=== PATIENT | male | born 1965 | race Caucasian/White ===

== ENCOUNTER 2020-02-26 14:27 | Outpatient (CLI) | payer OTHER, SELFPAY ==
--- NOTE | ~2020-02-26 | CT_ITS ---
EXAMINATION: CT soft tissue neck wo con DATE: 02/26/2020 14:53 INDICATION: Right neck lump. TECHNIQUE: Computed tomography (CT) of the neck was performed without intravenous contrast. Automated exposure control and iterative reconstruction technique were employed. The dose-length product was 5 45.56 mGy-cm. COMPARISON: None FINDINGS: There is mild emphysema. The right parotid gland is enlarged with fat stranding, consistent with parotiditis. There is no sialolith. A skin marker overlies this area. There are no pathological ly enlarged lymph nodes. There is mild mucosal thickening in the paranasal sinuses. Multiple maxillar y teeth demonstrate periapical lucencies. There is moderate cervical spondylosis. IMPRESSION: 1. Right-sided parotiditis. 2. Dental disease. Reviewed, dictated and finalized at location A.
== END 2020-02-26 14:28 | disposition home or self-care (01) ==
PROVIDERS: PCP Internal Medicine; Visit Provider Nurse Practitioner
DX: K11.5 Sialolithiasis (principal); R22.1 Localized swelling, mass and lump, neck; K08.9 Disorder of teeth and supporting structures, unspecified
CPT/HCPCS: 70490

== ENCOUNTER → 2020-08-22 14:21 | Outpatient (CLI) | payer OTHER, SELFPAY ==
--- NOTE | ~2020-08-22 | CT_ITS ---
EXAMINATION: CT lung screening DATE: 08/22/2020 14:41 INDICATION: Z87.891 - Personal history of nicotine dependence TECHNIQUE: Computed tomography (CT) of the chest was performed without intravenous contrast. Addition al 3D reconstructions utilizing coronal maximum intensity projection (MIP) were performed. Automated exposure control and iterative reconstruction technique were employed. The dose-length product was 10 6.32 mGy-cm. COMPARISON: None FINDINGS: Calcified right middle lobe nodule along with calcified right hilar lymph nodes consistent with old g ranulomatous disease. No other suspicious pulmonary nodules, pneumonia or other pulmonary infiltrates , pulmonary edema or pleural effusion. Heart size is normal. No pericardial effusion. No pathological ly enlarged thoracic lymphadenopathy. Visualized upper abdomen is unremarkable. Mild S-shaped scolios is of the thoracic spine with upper thoracic dextroscoliosis and mild mid to lower thoracic levocurva ture. Chronic appearing T8 and T9 compression fractures with mild anterior and right-sided vertebral body height loss. Moderate thoracic spondylosis. IMPRESSION: 1. . Lung-RADS category 1: Negative. Continue annual screening with noncontrast low-dose chest CT in 12 months. Reviewed, dictated and finalized at location B.
== END ==
PROVIDERS: PCP Internal Medicine; Visit Provider Nurse Practitioner
DX: Z12.2 Encounter for screening for malignant neoplasm of respiratory organs (principal); Z87.891 Personal history of nicotine dependence
CPT/HCPCS: 71271

== ENCOUNTER 2021-09-10 14:30 | Outpatient (CLI) | payer OTHER, SELFPAY ==
--- NOTE | ~2021-09-10 | CT_ITS ---
EXAMINATION: CT lung screening DATE: 09/10/2021 14:45 INDICATION: Z87.891 - Personal history of nicotine dependence TECHNIQUE: Computed tomography (CT) of the chest was performed without intravenous contrast. Addition al 3D reconstructions utilizing coronal maximum intensity projection (MIP) were performed. Automated exposure control and iterative reconstruction technique were employed. The dose-length product was 11 6.26 mGy-cm. COMPARISON: 08/22/2020 FINDINGS: Calcified pulmonary nodules in the right middle lobe and lingula along with calcified right hilar lym ph nodes consistent with old granulomatous disease. No other suspicious pulmonary nodules, pneumonia or other pulmonary infiltrates, pulmonary edema or pleural effusion. Heart size is normal. No pericar dial effusion. No pathologically enlarged thoracic lymphadenopathy. Visualized upper abdomen is unrem arkable. Mild S-shaped scoliosis of the thoracic spine with upper thoracic dextroscoliosis and mild m id to lower thoracic levocurvature. Chronic appearing T8 and T9 compression fractures with mild anter ior and right-sided vertebral body height loss. Moderate thoracic spondylosis. IMPRESSION: 1. . Lung-RADS category 1: Negative. Continue annual screening with noncontrast low-dose chest CT in 12 months. Reviewed, dictated and finalized at location B.
== END 2021-09-10 14:31 | disposition home or self-care (01) ==
PROVIDERS: PCP Internal Medicine; Visit Provider Nurse Practitioner
DX: Z87.891 Personal history of nicotine dependence (principal)
CPT/HCPCS: 71271

== ENCOUNTER 2025-03-13 08:03 | Outpatient (CLI) | payer OTHER, SELFPAY ==
[2025-03-13 11:03] LABS: Hematocrit 41.6 % (42.0-52.0); Hemoglobin 13.9 g/dL (14.0-18.0); Immature Granulocyte Percent A 0.8 % (0-0.5); Lymphocytes Absolute Auto 1.47 K/mm3 (0.9-3.2); Mean Corpuscular HGB Conc 33.4 g/dl (32-36); Mean Corpuscular Hemoglobin 32.8 pg (26-34); Mean Corpuscular Volume 98.1 fl (80-100); Nucleated Red Blood Cells Absolute Auto 0.000 K/mm3 (0.0-0.012); Nucleated Red Blood Cells Perc 0.0 % (0.0-0.2); Platelet Count Result 342 k/mm3 (150-375); Red Blood Count 4.24 M/mm3 (4.6-6.20); White Blood Count 6.6 K/mm3 (4.5-10.0)
[2025-03-13 11:10] LABS: Alanine Aminotransferase 30 U/L (6-50); Albumin Level 4.4 g/dL (3.5-5.1); Alkaline Phosphatase 91 U/L (38-126); Anion Gap 5 mmol/L (4-12); Aspartate Amino Transferase 47 U/L (17-59); Bilirubin,Total 0.5 mg/dL (0.2-1.3); Blood Urea Nitrogen 13 mg/dL (9-20); Calcium 9.2 mg/dL (8.4-10.2); Carbon Dioxide 27 mmol/L (22-30); Chloride 102 mmol/L (98-107); Cholesterol 172 mg/dL (0-200); Estimated Glomerular Filt Rate > 60; Glucose 108 mg/dL (65-110); HDL Direct 47 mg/dL; Magnesium 2.3 mg/dL (1.6-2.3); Potassium 4.7 mmol/L (3.4-5.0); Sodium 134 mmol/L (137-145); Total Protein 7.5 g/dL (6.3-8.2); Triglycerides 119 mg/dL (<150)
[2025-03-13 11:49] LABS: Prostate Specific Antigen 0.7 ng/mL (< OR = 4.0); Thyroid Stimulating Hormone 2.790 uIU/mL (0.465-4.680)
[2025-03-13 11:58] LABS: Hemoglobin A1C 5.5 % (<5.7)
[2025-03-13 12:24] LABS: Vitamin B12 396.0 pg/mL (239-931)
[2025-03-18 18:07] LABS: 1,25-Dihydroxy, Vitamin D-2 <10 pg/mL (.); 1,25-Dihydroxy, Vitamin D-3 35 pg/mL (.); Total 1,25-Dihydroxy,Vitamin D 40 pg/mL (.)
== END 2025-03-13 08:04 | disposition home or self-care (01) ==
LOC: ANHGOSHLAB 08:04
DX: E78.5 Hyperlipidemia, unspecified (principal); R73.9 Hyperglycemia, unspecified; Z12.5 Encounter for screening for malignant neoplasm of prostate; R53.83 Other fatigue; I10 Essential (primary) hypertension; Z13.29 Encounter for screening for other suspected endocrine disorder; Z13.0 Encounter for screening for diseases of the blood and blood-forming organs and certain disorders involving the immune mechanism; Z13.228 Encounter for screening for other metabolic disorders; E55.9 Vitamin D deficiency, unspecified; F10.10 Alcohol abuse, uncomplicated
CPT/HCPCS: 36415; 80053; 80061; 82172; 82607; 82652; 82746; 83036; 83735; 84153; 84443; 85025; G0103

== ENCOUNTER 2025-04-26 10:52 | Outpatient (CLI) | payer OTHER, SELFPAY ==
--- NOTE | ~2025-04-26 | CT_ITS ---
EXAMINATION:CT lung screening DATE: 04/26/2025 11:08 INDICATION: Screening TECHNIQUE: Computed tomography (CT) of the chest was performed without intravenous contrast. The dose-length product (DLP) was 111.75 mGy-cm. COMPARISON: 09/10/2021 FINDINGS: No new nodules or masses. Lungs are clear. Heart and great vessels stable, normal in size. Degenerative changes throughout the bony thorax. No acute process seen in the visualized portion of the upper abdomen or extrathoracic soft tissues. IMPRESSION: No suspicious lung nodules or masses. Recommend follow-up low-dose lung cancer screening chest CT in 12 months. Lung RADS 1. Reviewed, dictated and finalized at location A. EL DEPARTMENT MANAGER
--- OUTSIDE RECORDS SUMMARY | 2025-04-26 10:56 | XMS_ITS | Patient Health Record ---
Author Organization [facility] Cons Address [address] [place] [address] Care Team Providers Care Dye And Chemical Coordinator Name Role Phone Jennifer INSTRUCTIONAL DESIGN TECHNOLOGIST, Nadine Primary Care Provider Unavailnaida SCHAFFER MD, DAVID Unavailable Reason For Referral No Information Plan Of Treatment No Information Insurance Providers Payer Name Payer Address Payer Phone Subscriber Number Group Number Insured Name Patient Relationship to Insured Coverage Start Date Coverage End Date [facility] e [place] [address] [address] [place] [phone] [id number] Solo Kelsey Self - patient is the insured
== END 2025-04-26 10:53 | disposition home or self-care (01) ==
DX: Z12.2 Encounter for screening for malignant neoplasm of respiratory organs (principal); Z87.891 Personal history of nicotine dependence
CPT/HCPCS: 71271

== ENCOUNTER 2025-05-13 07:30 | Outpatient (CLI) | payer OTHER, SELFPAY ==
--- NOTE | 2025-05-13 07:54 | EST_ITS ---
Patient Info Name: Vipul Kelsey Age: 60 years : 1965 Gender: Male Ht: 68 in Wt: 180 lbs BSA: 2.00 m2 HR: 67 bpm BP: 159 / 83 mmHg Exam Date: 05/13/2025 7:54 AM Patient Status: O Admit Date: 05/13/2025 Exam Type: CA stress test treadmill A treadmill exercise stress test was performed. Staff Referring Physician: Angy Winter Attending Provider: Angy Winter Exercise Technologist: Angy Rashid Exercise Physician: Kain Membreno DO Summary 1. 1. Negative Vahe exercise stress test for ischemic ST changes by ECG criteria. 2. 2. Reduced functional capacity, achieving 7 METs of workload. 3. 3. Baseline hypertension with hypertensive response to exercise. 4. 4. Appropriate HR response to exercise. 5. 5. Appropriate HR recovery at 1 minute post exercise. 6. 6. No imaging with stress testing. 7. 7. Patient informed of the above results. Protocol: Vahe Stress ECG Details Stage: REST Duration (min): 1 min : 49 sec Speed (mph): 0.0 Grade (%): 0 HR (bpm): 71 SBP (mmHg): 159 DBP (mmHg): 83 METS: --- Stage: REST Duration (min): 4 min : 9 sec Speed (mph): 0.0 Grade (%): 0 HR (bpm): 72 SBP (mmHg): 159 DBP (mmHg): 83 METS: --- Stage: STAGE 1 Duration (min): 1 min : 0 sec Speed (mph): 1.7 Grade (%): 10 HR (bpm): 103 SBP (mmHg): 159 DBP (mmHg): 83 METS: --- Stage: STAGE 1 Duration (min): 2 min : 0 sec Speed (mph): 1.7 Grade (%): 10 HR (bpm): 113 SBP (mmHg): 159 DBP (mmHg): 83 METS: --- Stage: STAGE 1 Duration (min): 3 min : 0 sec Speed (mph): 1.7 Grade (%): 10 HR (bpm): 123 SBP (mmHg): 208 DBP (mmHg): 65 METS: --- Stage: STAGE 2 Duration (min): 1 min : 0 sec Speed (mph): 2.5 Grade (%): 12 HR (bpm): 136 SBP (mmHg): 208 DBP (mmHg): 65 METS: --- Stage: STAGE 2 Duration (min): 2 min : 0 sec Speed (mph): 2.5 Grade (%): 12 HR (bpm): 142 SBP (mmHg): 213 DBP (mmHg): 66 METS: --- Stage: STAGE 2 Duration (min): 2 min : 0 sec Speed (mph): 2.5 Grade (%): 12 HR (bpm): 143 SBP (mmHg): 213 DBP (mmHg): 66 METS: --- Stage: RECOVERY Duration (min): 0 min : 59 sec Speed (mph): 0.0 Grade (%): 0 HR (bpm): 121 SBP (mmHg): 213 DBP (mmHg): 66 METS: --- Stage: RECOVERY Duration (min): 1 min : 59 sec Speed (mph): 0.0 Grade (%): 0 HR (bpm): 92 SBP (mmHg): 213 DBP (mmHg): 66 METS: --- Stage: RECOVERY Duration (min): 2 min : 59 sec Speed (mph): 0.0 Grade (%): 0 HR (bpm): 84 SBP (mmHg): 208 DBP (mmHg): 81 METS: --- Stage: RECOVERY Duration (min): 3 min : 59 sec Speed (mph): 0.0 Grade (%): 0 HR (bpm): 84 SBP (mmHg): 208 DBP (mmHg): 81 METS: --- Stage: RECOVERY Duration (min): 4 min : 59 sec Speed (mph): 0.0 Grade (%): 0 HR (bpm): 83 SBP (mmHg): 202 DBP (mmHg): 83 METS: --- Stage: RECOVERY Duration (min): 5 min : 59 sec Speed (mph): 0.0 Grade (%): 0 HR (bpm): 82 SBP (mmHg): 189 DBP (mmHg): 84 METS: --- Stage: RECOVERY Duration (min): 6 min : 14 sec Speed (mph): 0.0 Grade (%): 0 HR (bpm): 81 SBP (mmHg): 189 DBP (mmHg): 84 METS: --- Rest HR: 72 bpm Peak HR: 142 bpm Rest Sys BP: 159 mmHg Peak Sys BP: 213 mmHg Max Pred HR: 160 bpm % Max Pred HR: 89 % Target HR: 136 bpm Max RPP: 30,246 bpm*mmHg [place] Score: 0 BP Response: Patient exhibited a hypertensive response with stress Termination Reason: Reached target heart rate or workload Cardiac Symptoms: Shortness of breath Max ST Seg Deviation: 1.00 mm Total Time: 5 min : 0 sec Rest Schmidt BP: 83 mmHg Peak Schmidt BP: 66 mmHg Angina Score: None Total METS: 7.1 Resting ECG Sinus rhythm, IRBBB. Stress ECG No ST changes. Arrhythmias None. Report Signatures
--- NOTE | 2025-05-13 07:54 | ECHO_ITS ---
Patient Info Name: Vipul Kelsey Age: 60 years : 1965 Gender: Male Ht: 69 in Wt: 185 lbs BSA: 2.04 m2 HR: 71 bpm BP: 174 / 102 mmHg Technical Quality: Good Exam Date: 05/13/2025 8:10 AM Patient Status: O Admit Date: 05/13/2025 Exam Type: CA echo doppler color flow Complete two-dimensional, color flow and Doppler transthoracic echocardiogram is performed. Pyrometer Operator: Soo Oneal Attending Provider: Angy Winter Summary 1. Complete two-dimensional, color flow and Doppler transthoracic echocardiogram is performed. 2. Left ventricular chamber dimension is normal. 3. Left ventricular systolic function is normal, estimated at 60-65. 4. The left ventricular diastolic function is grade I diastolic dysfunction. 5. E/e' 10 is mildly elevated. 6. No pulmonary hypertension, estimated pulmonary arterial systolic pressure is 13 mmHg. Left Ventricle E/e' 10 is mildly elevated. Left ventricular chamber dimension is normal. Left ventricular systolic function is normal, estimated at 60-65. The left ventricular diastolic function is grade I diastolic dysfunction. Right Ventricle Right ventricular chamber dimension is normal. Right ventricular systolic function is normal. Left Atria Left atrial chamber dimension is normal. Right Atria Right atrial chamber dimension is normal. Aortic Valve The aortic valve is trileaflet. There is no aortic valve stenosis. There is no aortic valve regurgitation. Pulmonic Valve There is no pulmonic regurgitation. Mitral Valve There is no mitral valve stenosis. There is no mitral valve regurgitation. Tricuspid Valve There is no tricuspid valve regurgitation. No pulmonary hypertension, estimated pulmonary arterial systolic pressure is 13 mmHg. Pericardium/Pleural There is no pericardial effusion. Inferior Vena Cava Normal inferior vena cava with >50% collapse upon inspiration consistent with normal right atrial pressure, 5 mmHg. Aorta The aortic root size at the sinus of Valsalva is normal. Left Ventricular Outflow Tract Name Value Normal LVOT 2D LVOT Diameter 2.0 cm LVOT Doppler LVOT Peak Velocity 105 cm/s LVOT Peak Gradient 4 mmHg LVOT Mean Gradient 2 mmHg LVOT VTI 20 cm LVOT VTI/AV VTI Ratio 0.8 LVOT Stroke Volume 65 ml LVOT CO 5.2 l/min LVOT CI 2.6 l/min/m2 Pulmonic Valve Name Value Normal PV Doppler PV Peak Velocity 97 cm/s PV Peak Gradient 4 mmHg Mitral Valve Name Value Normal MV Doppler MV Peak Gradient 3 mmHg MV Mean Gradient 1 mmHg MV Area (Cont Eq VTI) 3.3 cm2 MV Diastolic Function MV E Peak Velocity 83 cm/s MV A Peak Velocity 84 cm/s MV E/A 1.0 MV Decel Time (PW) 211 ms MV Annular TDI MV E/e' (Septal) 12.1 MV E/e' (Lateral) 8.9 MV E/e' (Average) 10.5 Tricuspid Valve Name Value Normal TV Regurgitation Doppler TR Peak Velocity 145 cm/s TR Peak Gradient 6 mmHg Estimated PAP/RSVP RA Pressure 5 mmHg <=5 PA Systolic Pressure 13 mmHg <36 RV Systolic Pressure 13 mmHg <36 Aortic Valve Name Value Normal AV Doppler AV Peak Velocity 117 cm/s AV Peak Gradient 6 mmHg AV Mean Gradient 3 mmHg AV VTI 25 cm AV Area (Cont Eq VTI) 2.6 cm2 >=3.0 AV Area (Cont Eq Yong) 2.9 cm2 AV DI (Yong) 0.89 AV Regurgitation 2D LVOT Area 3.2 cm2 Ventricles Name Value Normal LV Dimensions 2D/MM IVS Diastolic Thickness (2D) 0.7 cm 0.6-1.0 LVID Diastole (2D) 5.0 cm 4.2-5.8 LVIW Diastolic Thickness (2D) 1.0 cm 0.6-1.0 LVID Systole (2D) 3.0 cm 2.5-4.0 LVOT Diameter 2.0 cm LV Mass (2D Cubed) 143.42 g 88.00-224.00 LV Mass Index (2D Cubed) 70 g/m2 49-115 Relative Wall Thickness (2D) 0.40 <=0.42 LV Fractional Shortening/Ejection Fraction 2D/MM LV Fractional Shortening (2D) 40 % 25-43 LV EF (2D Teichholz) 70 % LV Diastolic Volume (4C MOD) 64 ml LV EF (4C MOD) 53 % LV Diastolic Volume (2C MOD) 70 ml LV EF (2C MOD) 72 % LV Diastolic Volume (BP MOD) 66 ml 62-150 LV Diastolic Volume Index (BP MOD) 33 ml/m2 34-74 LV Systolic Volume (BP MOD) 25 ml 21-61 LV Systolic Volume Index (BP MOD) 13 ml/m2 11-31 LV EF (BP MOD) 62 % 52-72 LV Diastolic Length (4C) 8.1 cm LV Systolic Length (4C) 7.1 cm LV Stroke Volume (4C MOD) 34 ml Report Signatures
--- NOTE | 2025-05-13 07:56 | ECG_ITS ---
Test Date: 2025-05-13 08:33:25 Measurements Intervals High View Rate: 68 P: 66 ME: 144 QRS: 65 QRSD: 99 T: 55 QT: 367 QTc: 391 Interpretive Statements SINUS RHYTHM DELAYED PRECORDIAL R/S TRANSITION BASELINE ARTIFACT- I, II, III, AVR, V1 BORDERLINE ECG No previous ECG available for comparison Electronically Signed On 05-13-2025 11:09:35 DRESSING ROOM PORTER by Kain Membreno D.O.
== END 2025-05-13 07:31 | disposition home or self-care (01) ==
LOC: ANHCARD 07:31
DX: I11.9 Hypertensive heart disease without heart failure (principal); R53.83 Other fatigue; F10.10 Alcohol abuse, uncomplicated; Z87.891 Personal history of nicotine dependence
CPT/HCPCS: 93005; 93017; 93306

== ENCOUNTER 2025-05-16 03:41 | Day surgery (SDC) | payer OTHER, SELFPAY ==
[2025-04-25 14:44] VITALS: BMI 26.6
--- OUTSIDE RECORDS SUMMARY | 2025-05-16 03:44 | XMS_ITS | Patient Health Record ---
Author Organization [facility] Address [address] [place] [address] Care Team Providers Care Reducing System Operator Name Role Phone Jennifer MANAGER OF SOFTWARE, Nadine Primary Care Provider Unavailnaida SCHAFFER MD, DAVID Unavailable Reason For Referral No Information Plan Of Treatment No Information Insurance Providers Payer Name Payer Address Payer Phone Subscriber Number Group Number Insured Name Patient Relationship to Insured Coverage Start Date Coverage End Date [facility] e Plus [address] [address] [place] [address] [id number] Solo Kelsey Self - patient is the insured
[2025-05-16 08:40] VITALS: BP 163/81; PULSE 65; RESP 16; TEMP 36.1; O2SAT 98; BMI 27.3
--- NOTE | 2025-05-16 08:49 | WPDANESEPPF ---
Anes - Initial Pre Proc Eval Procedure: Operation Date: 05/16/25 09:30 Proposed Procedures p Screening Colonoscopy - Vasyl Mccormick MD Date/Time: 05/16/25 08:49 Surgeon: Vasyl Mccormick MD Pre Op Diagnosis: Personal history of colon polyps, unspecified Patient Data Age: 60 Gender: M Height: 1.75 m Weight: 81.8 kg Allergies Allergy/AdvReac Type Severity Reaction Status Date / Time No Known Allergies Allergy Verified 04/25/25 14:43 Home Medications ?Medication ?Instructions ?Recorded ?Confirmed ?Type lisinopril 30 mg tablet 30 mg PO DAILY #90 tabs 03/02/24 04/25/25 Rx Patient hx anesthesia problems: none Family hx anesthesia problems: none Results Review: All pre-operative results and documents have been reviewed as part of the pre-operative evaluation. [facility] Past Medical History Medical History Rectal pain HTN (hypertension) Family History Family History Mother Lung cancer Father Lung cancer Social History Social History Smoking packs per day: 2 Smoking cigarettes per day: 40.0 Smoking status: Former smoker Tobacco type: cigarettes Alcohol intake: current Drinks per week: 35 Alcohol use details: daily Substance use: never Substance use type: marijuana Lack of Transportation: No Lack of Food: Never True Current Housing: I Have Housing Concerned About Future Housing: No Difficulty Paying Gas/Electric Bills: No Difficulty Paying for Meds: No Currently Unemployed: No Education: Associate Degree Difficulty w/ Childcare or Family Care: No Living arrangements: alone Occupation/Education: occupation Gender identity (if verbalized by the patient): Male Sexual Orientation (if Verbalized by the Patient): Straight or Heterosexual Spiritual care concerns: No Agree to blood products: Yes Anes - Eval Final PreProcedure Day of Procedure 05/16/25 08:49 Patient weight: overweight Heart: regular rate and rhythm Lungs: clear to auscultation Airway: Mallampati scale class II Neurological: alert and oriented Last oral intake: >/= 8 hours ASA classification: II Emergent: no Anesthetic plan: proceed Anesthesia type and monitoring: general GIVS and standard monitoring Results Review: All pre-operative results and documents have been reviewed as part of the pre-operative evaluation. Informed Consent: The patient's anesthetic plan and its attendant risks and benefits were discussed with the patient/family/POA. Questions were solicited and answers provided to the satisfaction of the patient/family/POA.
[2025-05-16] MEDS: LACTATED RINGERS 1,000 ML 150 ML IV CONT (09:01)
--- NOTE | 2025-05-16 09:14 | PM.HPGS ---
History of Present Illness History of Present Illness Consent: Risks, benefits, and alternatives have been discussed and questions answered. Patient agrees to proceed with procedure. Chief complaint: Personal history of colon polyps, unspecified Narrative: Vipul Kelsey is a 60 year old male here for screening colonoscopy Review of Systems Review of Systems: All systems reviewed & are unremarkable except as noted in HPI and below PMFSH Past Medical History Medical History Rectal pain HTN (hypertension) Family History Family History Mother Lung cancer Father Lung cancer Social History Social History Smoking packs per day: 2 Smoking cigarettes per day: 40.0 Smoking status: Former smoker Tobacco type: cigarettes Alcohol intake: current Drinks per week: 35 Alcohol use details: daily Substance use: never Substance use type: marijuana Lack of Transportation: No Lack of Food: Never True Current Housing: I Have Housing Concerned About Future Housing: No Difficulty Paying Gas/Electric Bills: No Difficulty Paying for Meds: No Currently Unemployed: No Education: Associate Degree Difficulty w/ Childcare or Family Care: No Living arrangements: alone Occupation/Education: occupation Gender identity (if verbalized by the patient): Male Sexual Orientation (if Verbalized by the Patient): Straight or Heterosexual Spiritual care concerns: No Agree to blood products: Yes Meds Home Medications and Allergies Home Medications ?Medication ?Instructions ?Recorded ?Confirmed ?Type lisinopril 30 mg tablet 30 mg PO DAILY #90 tabs 03/02/24 04/25/25 Rx Allergies Allergy/AdvReac Type Severity Reaction Status Date / Time No Known Allergies Allergy Verified 04/25/25 14:43 Vital Signs Vital Signs - 24 hr 05/16/25 08:40 Temperature 97.0 F L Pulse Rate 65 Respiratory Rate 16 Blood Pressure 163/81 H Pulse Oximetry 98 Oxygen Delivery Room Air Exam Const: General: comfortable and no acute distress HENMT: Face/Nose/Sinus: Normal nares present Eyes: General: appearance normal, both eyes and all related structures Neck: Neck: no JVD Resp: Auscultation: clear to auscultation bilaterally Cardio: Rate: regular rate Rhythm: regular rhythm GI: Inspection: non-distended GI Palp: Yes Soft to palpation Skin: General skin exam: normal color Extrem: General: normal to inspection Psych: Mental Status: mental status grossly normal Assessment and Plan Assessment and plan (1) Screening for colon cancer: Code(s): Z12.11 - Encounter for screening for malignant neoplasm of colon Status: Acute Assessment and Plan: colonoscopy
[2025-05-16 09:25] VITALS: BP 150/72; PULSE 70; RESP 20; O2SAT 97
--- NOTE | 2025-05-16 09:25 | S_PTH ---
PATIENT: Vipul Kelsey LOC: [facility]#:[id number] AGE/SX: 60/M ROOM: RE05/16/[address]: Vasyl Mccormick MD : 1965 BED: DIS: 05/16/2025 SPEC #: [id number] RECD: 05/16/25 09:50 STATUS: JESI REIlana #: [id number] JERICA: 05/16/25 09:[address]: Vasyl Mccormick DEPT: [facility] Surgical RECD BY: Maria G Nieto ENTERED: 05/16/25 09:51 SP TYPE: Surgical OTHR DR: Angy Winter, FRAN Tissues: A - Colon Polypectomy Procedures: Hematoxylin and Eosin Stain Gross and Microscopic Level 4
[2025-05-16 09:35] VITALS: BP 138/95; PULSE 73; RESP 18; O2SAT 97
[2025-05-16 09:45] VITALS: BP 160/86; PULSE 62; RESP 18; O2SAT 100
== END 2025-05-16 09:57 | disposition home or self-care (01) ==
PROVIDERS: Visit Provider Internal Medicine Gastroenterology
PROC: 0DJD8ZZ Inspection of Lower Intestinal Tract, Via Natural or Artificial Opening Endoscopic (ICD-10-PCS; CPT 45378; principal; 2025-05-16 09:30)
DX: Z12.11 Encounter for screening for malignant neoplasm of colon (principal); K63.5 Polyp of colon; K64.8 Other hemorrhoids; I10 Essential (primary) hypertension; F12.90 Cannabis use, unspecified, uncomplicated; Z87.891 Personal history of nicotine dependence; Z80.1 Family history of malignant neoplasm of trachea, bronchus and lung
CPT/HCPCS: 45385; 88305; J2704; J7120